=== PATIENT | female | born 1930 | race Caucasian/White ===

== ENCOUNTER 2019-02-25 11:44 | Outpatient (CLI) | payer MEDICARE, OTHER ==
--- NOTE | 2019-02-26 10:24 | XRAY Report ---
Reason: PAIN IN LEFT HIP Procedure Date: 02/25/2019 Accession Number: [id number] / [id number] Procedure: XRS - Hip w/Pelvis 2-3V LT CPT Code: FULL RESULT: EXAM: LEFT HIP RADIOGRAPHY EXAM DATE: 02/25/2019 11:59 AM. CLINICAL HISTORY: PAIN IN LEFT HIP. COMPARISON: LUMBAR SPINE 2 VIEW 02/25/2019 11:44 AM XR PELVIS 1V 08/07/2006 12:36 PM. TECHNIQUE: 2 views. FINDINGS: Bones: Osteopenia. No fractures or bone lesion. Joints: Osteophyte femoral head. Joint space narrowing. No dislocation. Soft Tissues: Normal. No soft tissue swelling. IMPRESSION: 1. DJD. 2. Osteopenia. If there is clinical concern for fracture and patient cannot ambulate recommend MRI RADIA
--- NOTE | 2019-02-26 10:56 | XRAY Report ---
Reason: PAIN IN LEFT HIP Procedure Date: 02/25/2019 Accession Number: [id number] / [id number] Procedure: XRS - Lumbar Spine 2 View CPT Code: FULL RESULT: EXAM: LUMBOSACRAL SPINE RADIOGRAPHY EXAM DATE: 02/25/2019 11:59 AM. CLINICAL HISTORY: PAIN IN LEFT HIP. COMPARISONS: XR LUMBAR SPINE 08/07/2006 12:41 PM. TECHNIQUE: 3 views. FINDINGS: Alignment: Grade 1 anterolisthesis L4 on L5 Bones: Five [id number] lumbar vertebral bodies are present. Moderate compression of T10. Mild compression T11. Disks: Osteophytes diffusely in the lumbar spine. L4-L5 disk space narrowing Facets: L4-L5, L5-S1 facet arthropathy Sacroiliac Joints: Unremarkable. Soft Tissues: Vascular calcifications. The visualized bowel gas pattern is normal. IMPRESSION: 1. Moderate T10 compression. Mild T11 compression. 2. Moderate DJD RADIA
== END 2019-02-25 11:45 | disposition home or self-care (01) ==
LOC: DI.S 11:44
PROVIDERS: ATTEND Nurse Practitioner Family
DX: M16.12 Unilateral primary osteoarthritis, left hip (principal); M85.88 Other specified disorders of bone density and structure, other site; M47.816 Spondylosis without myelopathy or radiculopathy, lumbar region; M47.817 Spondylosis without myelopathy or radiculopathy, lumbosacral region; M48.54XA Collapsed vertebra, not elsewhere classified, thoracic region, initial encounter for fracture
CPT/HCPCS: 72100